=== PATIENT | male | born 1985 | race Caucasian/White ===

== ENCOUNTER 2016-11-04 13:45 | Inpatient (IN) | payer OTHER ==
--- NOTE | 2016-11-04 14:18 | EDPHY ---
H & P Stated Complaint: L hand skin infection HPI/ROS: HPI CHIEF COMPLAINT: left hand/wrist infection HISTORY OF PRESENT ILLNESS: This patient very pleasant 31-year-old male denies any significant medical history, does smoke marijuana, denies other illicit drugs or IV drug use. He presents to the emergency room with 2 days of worsening left wrist pain, swelling, redness. Patient states he was seen and a recent urgent care placed on Bactrim for pustules of his left upper arm, and 1 was drained urgent care. He tells me that he had another lesion on the distal aspect of his left wrist dorsal side that was red and swollen he tried to drain this himself by pushing on it is squeezing pus out on removing the scab and sticking a sharp object to drain it. He tells me that the redness and swelling has now gotten worse he is now entire left hand and left arm is swollen, red, warm. Denies fever. Does tell me that it causes him pain. He is able to have full range of motion of his left wrist. Denies chills or rigors. Past Medical History: No significant medical history Past Surgical History: No significant surgical history Social History: Tells me is visiting from [place] Family History: Noncontributory ROS REVIEW OF SYSTEMS: A comprehensive 10 point review of systems is otherwise negative aside from elements mentioned in the history of present illness. Exam Constitutional triage nursing summary reviewed, vital signs reviewed, awake/ alert. Eyes normal conjunctivae and sclera, EOMI, PERRLA. HENT normal inspection, atraumatic, moist mucus membranes, no epistaxis, neck supple/ no meningismus, no raccoon eyes. Respiratory clear to auscultation bilaterally, normal breath sounds, no respiratory distress, no wheezing. Cardiovascular rate normal, regular rhythm, no murmur, no edema, distal pulses normal. Gastrointestinal soft, non-tender, no rebound, no guarding, normal bowel sounds, no distension, no pulsatile mass. Genitourinary no CVA tenderness. Musculoskeletal no midline vertebral tenderness, full range of motion, no calf swelling, no tenderness of extremities, no meningismus, good pulses, neurovascularly intact. Skin left wrist dorsal aspect distal radius region: significant swelling, redness, warmth this tracks up his forearm half way also involves the dorsum of his hand significantly he is neurovascularly intact. No crepitus. There is a pustule present with weeping drainage. Neurologic awake, alert and oriented x 3, AAOx3, moves all 4 extremities equally, motor intact, sensory intact, CN II-XII intact, normal cerebellar, normal vision, normal speech. Psychiatric normal mood/affect. Heme/Lymph/Immune no lymphadenopathy. Differential Diagnosis: Includes but is not limited to in a particular order MRSA infected, deep space hand infection, bacteremia, sepsis doubt septic joint given full range of motion, cellulitis, strep infection Medical Decision Making: this patient had an IV established obtain blood cultures, lactic acid, he will need an x-ray to rule out gas of his left arm, patient received broad-spectrum antibiotics IV vancomycin IV Zosyn check blood work. IV morphine for pain control. Most likely patient will need to be admitted as he is on Bactrim however his infection is getting worse. Re-evaluation: ED x-ray left wrist three view: soft tissue swelling, no gas, no osseous involvement. Image interpreted by myself 1529: Re-examination this time patient is resting comfortably. Blood cultures have been sent, wound culture sent, patient received broad-spectrum antibiotics including IV vancomycin IV Zosyn given possible outpatient failure Bactrim for this left wrist infection. Given how much swelling and redness and pain this patient has a will admit the patient to the hospital for observation IV pain control and IV antibiotics. No evidence of septic joint at this time specifically is full range of motion of his wrist no limited range of motion. 1536; re-evaluation at this time patient be admitted to the hospitalist service he agrees for admission overnight. No evidence of severe sepsis, or septic joint. Source: Patient - Personal History Current Tetanus/Diphtheria Vaccine: Yes Current Tetanus Diphtheria and Acellular Pertussis (TDAP): Yes - Medical/Surgical History Hx Asthma: No Hx Chronic Respiratory Disease: No Hx Diabetes: No Hx Cardiac Disease: No Hx Renal Disease: No Hx Cirrhosis: No Hx Alcoholism: No Hx HIV/AIDS: No Hx Splenectomy or Spleen Trauma: No - Social History Smoking Status: Never smoked Constitutional: Initial Vital Signs Temperature (C) 36.2 C 11/04/16 13:52 Heart Rate 73 11/04/16 13:52 Respiratory Rate 16 11/04/16 13:52 Blood Pressure 131/90 H 11/04/16 13:52 O2 Sat (%) 98 11/04/16 13:52 O2 Delivery Mode Room Air Allergies/Adverse Reactions: No Known Allergies Allergy (Unverified 11/04/16 13:54) Medical Decision Making - Data Points Laboratory Results: Laboratory Results 11/04/16 14:30 11/04/16 14:30 11/04/16 14:30 WBC 14.97 H 10^3/uL (3.80-9.50) RBC 5.92 10^6/uL (4.40-6.38) Hgb 15.8 g/dL (13.7-17.5) Hct 48.6 % (40.0-51.0) MCV 82.1 fL (81.5-99.8) MCH 26.7 L pg (27.9-34.1) MCHC 32.5 g/dL (32.4-36.7) RDW 12.5 % (11.5-15.2) Plt Count 204 10^3/uL (150-400) MPV 11.0 fL (8.7-11.7) Neut % (Auto) 78.4 H % (39.3-74.2) Lymph % (Auto) 11.9 L % (15.0-45.0) [place] % (Auto) 7.5 % (4.5-13.0) Eos % (Auto) 1.3 % (0.6-7.6) Baso % (Auto) 0.3 % (0.3-1.7) Nucleat RBC Rel Count 0.0 % (0.0-0.2) Absolute Neuts (auto) 11.73 H 10^3/uL (1.70-6.50) Absolute Lymphs (auto) 1.78 10^3/uL (1.00-3.00) Absolute Monos (auto) 1.13 H 10^3/uL (0.30-0.80) Absolute Eos (auto) 0.19 10^3/uL (0.03-0.40) Absolute Basos (auto) 0.05 10^3/uL (0.02-0.10) Absolute Nucleated RBC 0.00 10^3/uL (0-0.01) Immature Gran % 0.6 % (0.0-1.1) Immature Gran # 0.09 10^3/uL (0.00-0.10) ESR 8 MM/HR (0-15) Sodium 142 mEq/L (134-144) Potassium 4.1 mEq/L (3.5-5.2) Chloride 99 mEq/L (97-110) Carbon Dioxide 27 mEq/l (22-31) Anion Gap 16 mEq/L (8-16) BUN 11 mg/dL (7-23) Creatinine 1.1 mg/dL (0.7-1.3) Estimated GFR > 60 Glucose 97 mg/dL (70-100) Calcium 9.8 mg/dL (8.5-10.4) Total Bilirubin 1.4 mg/dL (0.1-1.4) AST 25 IU/L (17-59) ALT 33 IU/L (21-72) Alkaline Phosphatase 80 IU/L (38-126) C-Reactive Protein 16.3 H mg/L (<10.0) Total Protein 8.5 H g/dL (6.3-8.2) Albumin 4.9 g/dL (3.5-5.0) Medications Given: Discontinued Medications Sodium Chloride (Ns) 1,000 mls @ 0 mls/hr IV ONCE ONE PRN Reason: Wide Open Stop: 11/04/16 14:26 Last Admin: 11/04/16 14:55 Dose: 1,000 mls Piperacillin/Tazobactam/Dextrose (Zosyn (Premix)) 100 mls @ 200 mls/hr IV EDNOW ONE PRN Reason: Protocol Stop: 11/04/16 14:54 Last Admin: 11/04/16 14:59 Dose: 100 mls Morphine Sulfate (Morphine) 4 mg IVP EDNOW ONE Stop: 11/04/16 14:31 Last Admin: 11/04/16 14:56 Dose: 4 mg Ondansetron HCl (Zofran) 4 mg IVP EDNOW ONE Stop: 11/04/16 14:31 Last Admin: 11/04/16 14:56 Dose: 4 mg Departure - Departure Disposition: [facility] Acute Clinical Impression: Cellulitis Condition: Fair Referrals: NONE *PRIMARY CARE P,. [Primary Care Provider] - As per Instructions
[2016-11-04] MEDS ORDERED: NS 1,000 ML IV ONE (14:25)
[2016-11-04] MEDS ORDERED: PIPERACILLIN/TAZO 4.5 GM/DEX 100 ML IV ONE (14:25)
[2016-11-04] MEDS ORDERED: VANCOMYCIN HCL/NORMAL SALINE 250 ML IV ONE (14:25)
[2016-11-04] MEDS ORDERED: ONDANSETRON 4 MG/2 ML VIAL IVP ONE (14:30)
[2016-11-04 14:54] LABS: % IMMATURE GRANULYOCYTES 0.6 % (0.0-1.1); ABSOLUTE IMMATURE GRANULOCYTES 0.09 10^3/uL (0.00-0.10); ADD DIFF? NO; ADD MORPH? NO; ADD SCAN? NO; ATYPICAL LYMPHOCYTE FLAG 10 (0-99); FRAGMENT RBC FLAG 0 (0-99); HEMATOCRIT 48.6 % (40.0-51.0); HEMOGLOBIN 15.8 g/dL (13.7-17.5); LEFT SHIFT FLG 0 (0-99); LIPEMIA HEMOLYSIS FLAG 80 (0-99); MEAN CELL HEMOGLOBIN 26.7 pg (27.9-34.1); MEAN CELL HEMOGLOBIN CONCENTR. 32.5 g/dL (32.4-36.7); MEAN CELL VOLUME 82.1 fL (81.5-99.8); PLATELET CLUMPS FLAG 0 (0-99); PLATELET COUNT 204 10^3/uL (150-400); RED BLOOD CELL COUNT 5.92 10^6/uL (4.40-6.38); RED CELL DISTRIBUTION WIDTH 12.5 % (11.5-15.2)
--- NOTE | 2016-11-04 15:05 | DX ---
Left Wrist, Four Views November 04, 2016 1435 hours Indication: Pain, swelling and purulent drainage. Comparison: None. Findings: Bony alignment of the wrist is anatomic. Joint spaces are well maintained. No evidence of f racture or dislocation. No foreign body or soft tissue gas. There is some lateral soft tissue swellin g along the radius. Impression: Soft tissue swelling. No evidence of foreign body or subcutaneous emphysema.
[2016-11-04 15:12] LABS: ALANINE AMINOTRANSFERASE 33 IU/L (21-72); ALBUMIN 4.9 g/dL (3.5-5.0); ALKALINE PHOSPHATASE 80 IU/L (38-126); ANION GAP 16 mEq/L (8-16); ASPARTATE AMINOTRANSFERASE 25 IU/L (17-59); BILIRUBIN,TOTAL 1.4 mg/dL (0.1-1.4); C-REACTIVE PROTEIN 16.3 mg/L (<10.0); CALCIUM 9.8 mg/dL (8.5-10.4); CARBON DIOXIDE 27 mEq/l (22-31); CHLORIDE 99 mEq/L (97-110); CREATININE 1.1 mg/dL (0.7-1.3); GLOMERULAR FILTRATION RATE > 60; GLUCOSE 97 mg/dL (70-100); POTASSIUM 4.1 mEq/L (3.5-5.2); SODIUM 142 mEq/L (134-144); TOTAL PROTEIN 8.5 g/dL (6.3-8.2)
[2016-11-04 15:13] LABS: SEDIMENTATION RATE 8 MM/HR (0-15)
[2016-11-04] MEDS ORDERED: HYDROmorphONE/DILAUDID 1 MG/ML SYR ONE (15:45)
[2016-11-04] MEDS ORDERED: HYDROmorphONE/DILAUDID 2 MG/ML SYR IVP ONE (15:52)
[2016-11-04] MEDS ORDERED: ZOLPIDEM TARTRATE 5 MG TAB PO PRN (15:55)
[2016-11-04] MEDS ORDERED: ONDANSETRON 4 MG/2 ML VIAL IVP PRN (15:55)
[2016-11-04] MEDS ORDERED: ONDANSETRON DISINTEGRATING 4 MG TAB PO PRN (15:55)
[2016-11-04] MEDS ORDERED: HYDROmorphONE/DILAUDID 1 MG/ML SYR IVP PRN (15:55)
[2016-11-04] MEDS ORDERED: ACETAMINOPHEN 325 MG TAB PO PRN (15:55)
--- NOTE | 2016-11-04 16:46 | US ---
Ultrasound Extremity Nonvascular Indication: Left wrist pain and swelling. Technique: Grayscale and color imaging of the left wrist was performed at the site of abnormality. Findings: There is an avascular 1.2 x 0.9 x 0.3 cm hypoechoic area approximately 4.5 mm directly belo w the skin edge. Its borders are irregular. The surrounding tissue is hyperemic. Impression: Findings consistent with early abscess of the left wrist. Results discussed by Dr. Subramanian with Dr. Quach on November 04, 2016 at 1642 hours. He was present at the time of ultrasound and will attempt aspiration.
--- NOTE | 2016-11-04 17:09 | GHP ---
[f rep st] HISTORY AND PHYSICAL DATE OF ADMISSION: 11/04/2016 CHIEF COMPLAINT: Left wrist pain. HISTORY OF PRESENT ILLNESS: Mahamed is a 31-year-old healthy young man who comes in with increasing swelling and pain in his left wrist. He noted some pustules on his left upper arm a few days ago. Jose Carlos jacob went to urgent care on Friday, had 1 of the pustules on roofed, and placed empirically on Bactrim for likely staph infection. He has taken 4 doses, 1 Friday, 2 Friday, and 1 this morning; however , yesterday morning, he had increased swelling and pain in his left wrist and dorsum of his hand. He has not had fevers or chills, nausea or vomiting. He does not feel sick otherwise. Over the course of the day, the swelling became quite significant so he noted a small pimple on his wrist area. He unroofed it, tried to squeeze out some pus, and noted that it got worse, so came in today for further evaluation and treatment. 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 He may have had intermittent needle sticks, he i s not sure. He did have a similar episode of these pustules a few years ago, which was related tempo rarily a tattoo in the same area. He denies any new tattoos on his left arm, but did have a new tatt oo a few weeks ago on his leg. He is traveling from [place], [place] to visit some friends in the area. He denies any IV drug use or skin-popping. He has had no headache, vision, hearing, speech, s wallowing problems. No chest pain, coughing, shortness of breath. No nausea, vomiting, diarrhea. N o other skin lesions except on his upper arm and wrist. No other rash. He does not feel sick. REVIEW OF SYSTEMS: A 10-point review of systems was done and is negative except as stated in HPI. PAST MEDICAL HISTORY: Negative. PAST SURGICAL HISTORY: Negative. CURRENT MEDICATIONS: Occasional Tylenol and ibuprofen. ALLERGIES: No known drug allergies. FAMILY HISTORY: Parents are healthy. SOCIAL HISTORY: He denies any tobacco use. He does smoke marijuana daily and drinks alcohol 1-2 madiha es a week. Again, he denies any IV drug use or skin-popping. PHYSICAL EXAM: VITAL SIGNS: Temp is 37.1, heart rate 72, blood pressure 133/84, respirations 14. H e is 96% on room air. GENERAL: He is a well-developed, well-nourished, 31-year-old. He is in very mild distress. He is alert and oriented. His speech is clear and fluent. HEENT: Head is atraumati c. Pupils equal. Extraocular movements intact. Mucous membranes are moist. NECK: Supple. No kaleb nopathy. Thyroid normal. HEART: Regular rate and rhythm. No murmurs, gallops, or rubs. LUNGS: C lear to auscultation. No wheeze, rhonchi, or rales. ABDOMEN: Soft, no masses. Normoactive bowel s ounds. EXTREMITIES: No clubbing, cyanosis, or edema. NEUROLOGIC: He moves all 4 extremities equal ly. Sensation grossly intact. MUSCULOSKELETAL: He does have increasing swelling and slight decreas ed range of motion of his left wrist. He can make a soft patient safety officer of his hand, which is somewhat limited by the swelling more so than the pain. SKIN: 2 small pustules on his left upper arm and 1 draining pustule on his left wrist. He has multiple tattoos. LABORATORY DATA: CBC shows a white count of 15,000, hemoglobin 15.8, with a platelet count of 204. Electrolytes and renal function are normal. CRP is elevated at 16.3. IMAGING: Plain films are within normal limits except for some soft tissue swelling. ASSESSMENT AND PLAN: 31-year-old, otherwise healthy male presents with cellulitis, possible small ab scess of his left wrist and forearm. 1. Cellulitis with abscess. Currently draining. It was cultured by the ER physician, Dr. Quach. Given the ongoing drainage, will go ahead and get an ultrasound of the area to make sure there is no deeper abscess. If so, would attempt to richelle it. Otherwise, will admit him for IV antibiotics and start him on vancomycin to be dosed by Pharmacy. We will plan on treating his infection until the s welling is markedly improved and he has good, near normal range of motion in his hand and wrist. The culture results will aid in discharging antibiotics. Certainly if this is streptococcus, we could l ikely go with dicloxacillin or Keflex. If there is a staphylococcus infection, would rely on sensiti vities done. If the patient worsens significantly, would consider Infectious Disease consult and fur ther imaging. 2. Ongoing marijuana use. 3. Deep vein thrombosis prophylaxis. Patient is low risk. Will encourage ambulation while he is he re. /[id number]/MODL
[2016-11-04] MEDS: oxyCODONE IR 5 MG TAB PO PRN ×2 (18:28→23:35)
[2016-11-05 05:31] LABS: % IMMATURE GRANULYOCYTES 0.3 % (0.0-1.1); ABSOLUTE IMMATURE GRANULOCYTES 0.04 10^3/uL (0.00-0.10); ADD DIFF? NO; ADD MORPH? NO; ADD SCAN? NO; ATYPICAL LYMPHOCYTE FLAG 20 (0-99); FRAGMENT RBC FLAG 0 (0-99); HEMATOCRIT 43.5 % (40.0-51.0); HEMOGLOBIN 13.7 g/dL (13.7-17.5); LEFT SHIFT FLG 0 (0-99); LIPEMIA HEMOLYSIS FLAG 80 (0-99); MEAN CELL HEMOGLOBIN 26.3 pg (27.9-34.1); MEAN CELL HEMOGLOBIN CONCENTR. 31.5 g/dL (32.4-36.7); MEAN CELL VOLUME 83.7 fL (81.5-99.8); MEAN PLATELET VOLUME 11.3 fL (8.7-11.7); PLATELET CLUMPS FLAG 0 (0-99); PLATELET COUNT 166 10^3/uL (150-400); RED CELL DISTRIBUTION WIDTH 12.6 % (11.5-15.2)
[2016-11-05 05:48] LABS: ANION GAP 10 mEq/L (8-16); CARBON DIOXIDE 25 mEq/l (22-31); CHLORIDE 104 mEq/L (97-110); GLOMERULAR FILTRATION RATE > 60; GLUCOSE 91 mg/dL (70-100); POTASSIUM 4.3 mEq/L (3.5-5.2); SODIUM 139 mEq/L (134-144)
--- NOTE | 2016-11-05 09:48 | HOSPPROG ---
Hospitalist Progress Note Assessment/Plan: Mahamed is a 31 y/o male who presented to the ER with left wrist pain. Today is my first encounter with the patient/chart reviewed. #. 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 Leukocytosis due to the above #. Cannibis use #. Plan: will get surgical and ID team involvement/ explained plan of care to Mahamed. He understands and is appreciative. Subjective: Mahamed c/o some pain at the left wrist area/ is able to flex and extend wrist. Objective: Vital Signs Temp Pulse Resp BP Pulse Ox 37 C 53 L 18 116/67 96 11/05/16 07:51 11/05/16 07:51 11/05/16 07:51 11/05/16 07:51 11/05/16 07:51 Laboratory Results 11/05/16 04:50 11/05/16 04:50 11/04/16 11/05/16 11/06/16 05:59 05:59 05:59 Intake Total 550 Balance 550 - Physical Exam Constitutional: no apparent distress, appears nourished Eyes: PERRL Ears, Nose, Mouth, Throat: hearing normal Cardiovascular: regular rate and rhythym Respiratory: no respiratory distress Gastrointestinal: normoactive bowel sounds Skin: fluctuance (over left wrist area with small pustule, redness and erythema extend from wrist to top part of the hand, fingers with swelling but not reddened), other (multiple tattoos) Musculoskeletal: full muscle strength Neurologic: AAOx3 Psychiatric: interacting appropriately, not anxious ICD10 Worksheet Patient Problems: Problems Problem Status Diagnosed Cellulitis Acute
[2016-11-05] MEDS: oxyCODONE IR 5 MG TAB PO PRN ×4 (11:20→23:12)
[2016-11-05] MEDS ORDERED: VANCOMYCIN 1.25 GM in D5W 250 ML IV SCH ×2 (11:30)
[2016-11-05] MEDS: VANCOMYCIN 1.25 GM in D5W 250 ML IV SCH ×2 (12:14→19:39)
--- NOTE | 2016-11-05 13:02 | GCON ---
[f rep st] CONSULTATION DATE OF CONSULTATION: 11/05/2016 REFERRING PHYSICIAN: Conchita Parish NP CHIEF COMPLAINT: Left wrist abscess. HISTORY OF PRESENT ILLNESS: The patient is a 31-year-old man who presented to the ER on 11/04/2016, complaining of left wrist pain and redness. He was seen at Urgent Care several days prior for small abscesses of his left upper arm. These were unroofed and he was placed on oral Bactrim. The day bef ore admission, he developed swelling and pain of his left wrist and hand. He denies fevers or chills . He has completed 4 doses of Bactrim and was started on IV antibiotics when admitted, he was starte d on IV vancomycin. A wrist x-ray was obtained in the ER which showed soft tissue swelling. An ultr asound showed evidence of early abscess. He had an incision and drainage performed in the ER and cul tures were obtained, these are pending. He states that the redness and swelling have remained stable since being admitted. He denies any worsening symptoms. He denies any IV drug use. He works in a [employer] and may have been stuck by a needle but he is unsure. He does not have a history of ch ronic infections. PAST MEDICAL HISTORY: None. PAST SURGICAL HISTORY: None. ALLERGIES: No known drug allergies. FAMILY HISTORY: Noncontributory. SOCIAL HISTORY: He denies tobacco or IV drug use. He uses recreational marijuana daily. Drinks alc ohol several times per week. REVIEW OF SYSTEMS: 10-point review of systems negative aside from HPI. PHYSICAL EXAM: GENERAL: Well developed, well nourished man, in no acute distress. HEENT: Normocep halic, atraumatic. No hearing deficits. Pupils equal and round. No scleral icterus. Mucous [place] moist. NECK: Trachea midline. HEART: Regular rate and rhythm. LUNGS: Clear to auscultation bilaterally. MUSCULOSKELETAL: He has full range of motion of left fingers and wrist, slightly decre ased secondary to pain. SKIN: The left dorsal wrist and hand is edematous and very warm to the touc h. There is induration of the wrist, which is very tender to palpation. There is no fluctuance and does not appear to be a distinct abscess cavity. He has 2 scabs on his left upper outer arm consiste nt with healing abscesses. IMPRESSION AND PLAN: This is a 31-year-old man with cellulitis of the left wrist and hand, question early abscess. We will order a CT of the extremity to further define the area, evaluate for abscess versus inflammation. We discussed that he may require further debridement at bedside or in the opera ting room. He may have a wound that will take time to heal. He will continue IV antibiotics per Inf ectious Disease. He will be additionally seen by Dr. Keren Andre, who agrees with the above impressi on and plan. /[id number]/MODL
--- NOTE | 2016-11-05 13:37 | GCON ---
[f rep st] CONSULTATION INFECTIOUS DISEASE CONSULTATION DATE OF CONSULTATION: 11/05/2016 REFERRING PHYSICIAN: Conchita Parish NP REASON FOR CONSULTATION: Left upper extremity cellulitis with early abscess formation. CHIEF COMPLAINT: Left forearm redness with swelling. HISTORY OF PRESENTING ILLNESS: This is a 31-year-old male with previous history of right lower extre mity cellulitis a few years ago after he had tattooing done there. He recently traveled here from [facility], and arrived here in [place] on October 29. Around that time, he started to notice a few pus tules that had developed on his left arm and forearm. He went to the urgent care on [facility], where the upper pustule from his left upper arm was I and D. Apparently, n o cultures were taken at the time and he was placed empirically on Bactrim. He had taken about 2 days ' worth and came in yesterday with increasing redness and swelling of his left hand, forearm and wris t region. He denied any fevers or shaking chills at the time. He was started on vancomycin yesterday. Blood cultures x2 sets have been drawn and they are pending. In the ED, he underwent an extremity ul trasound, which showed a small hypoechoic area about 1.2 x 0.9 x 0.3 cm near the wrist. He also under went a left wrist x-ray, which showed soft tissue swelling with no foreign body and no air noted. His white blood cell count was 14.9, with a mildly elevated CRP at 16.3. He has continued to have increa sing redness and swelling involving the hand, wrist and forearm. The swelling of the hand overall may be just a little bit better, but not significantly improved. He denies receiving any recent tattooin g work involving his left arm. He denies injection drug usage as well. Infectious Disease is now cons ulted for further evaluation and opinion on the above. REVIEW OF SYSTEMS: GENERAL: Denies any fever or shaking chills. HEAD: No headaches. EYES: No change in vision. ENT: No sore throat, difficulty swallowing, ear pain or ear drainage. CARDIOVASCULAR: Jon es any chest pain or rapid heartbeat. RESPIRATORY: Denies any shortness of breath, cough, or sputum p roduction. ABDOMEN: No nausea, vomiting, abdominal pain, or diarrhea. : No dysuria. BACK: Denies an y flank pain or back pain. MUSCULOSKELETAL: Denies any joint pains or muscle aches. SKIN: No other ra shes or open wounds. Rest of 10-point review of systems essentially negative, except for above. PAST MEDICAL HISTORY: Significant for right lower extremity cellulitis after a tattoo being done the re. PAST SURGICAL HISTORY: Significant for wisdom teeth surgery. ALLERGIES: No known drug allergies. SOCIAL HISTORY: He smokes marijuana and drinks alcohol 1-2 times a week. He occasionally snorts coca ine, most recent time was Andie. He denies any intravenous drug usage. He lives in an apart ent with a friend. He is originally from [place], and traveled here to [place] on October 29, a nd is due to leave back some time soon. He actually drove here. He has never been checked for HIV, or hepatitis B or C. FAMILY HISTORY: Parents are healthy. PHYSICAL EXAMINATION: VITAL SIGNS: Temperature current 37, T-max 37.1, pulse is 53, respiratory rate is 18, blood pressure 116/67, saturation 96% on room air. GENERAL: Patient is resting comfortably in bed. No acute respiratory distress. Awake, alert, and oriented x3. HEENT: Head is normocephalic, atr aumatic. Eyes: No conjunctival injection. No petechiae noted. Oropharynx is clear. CARDIOVASCULAR: S1 and S2. Regular rate and rhythm. No murmurs appreciated. RESPIRATORY: Clear to auscultate bilaterall y. No rhonchi or rales appreciated. ABDOMEN: Positive bowel sounds in all 4 quadrants. Soft, nontende r, nondistended. No obvious organomegaly appreciated. EXTREMITIES: No lower extremity edema. MUSCULOS KELETAL: No obvious joint effusions or pain on palpation of the joints. SKIN: Pertinent findings show left forearm, wrist and hand with erythema. There is a focal area of induration just above his left wrist that is tender to palpate. There is minimal serous drainage on palpation, but no obvious fluctu ance. It is mostly very indurated. His hand is swollen. Sensation is intact on the fingertips and per ipheral pulses are well appreciated. Upon his left arm, there is a healing pustule with some mild ind uration surrounding. No drainage and some mild scabbing noted. LABS: 1. Sodium 139, potassium 4.3, chloride 104, bicarb 25, BUN is 8, creatinine is 1.0. C-reactive prote in 16.3. White blood cell count of 14.1, hemoglobin 13.7, platelets are 166, neutrophil count is 69.6 , down from 78.4. ESR is 8. 2. Blood cultures x2 sets are pending. 3. Wrist wound cultures with rare epis, no polys, no organisms. Cultures are pending. 4. Imaging results have all been reviewed by me and are stated above. ASSESSMENT: Left upper extremity cellulitis with early abscess formation involving the distal forear m and hand. PLAN: The patient is currently on vancomycin 0.25 g q.12 hours. We will order a trough for further e valuation. We will add clindamycin for synergistic activity. Follow up periodically. I agree with missy gical consultation to further evaluate for possible I and D. He has quite a bit of induration there a nd thus, it may take some time to more formally organize into a pus pocket. Care coordinated with the surgical PA. I have discussed checking HIV and hepatitis serologies with the patient, and he agrees to the testing. If an I and D is done, would recommend a repeat culture to be done for further evalua tion. Recommended elevation of the extremities and discussed this importance with the patient. Trev duffy oordinated with the hospitalist team. I thank you very much for providing this opportunity to care fo r your patient in consultation. /[id number]/MODL
[2016-11-05] MEDS ORDERED: IOPAMIDOL (ISOVUE 370) 100 ML BTL IV ONE (14:00)
[2016-11-05] MEDS: CLINDAMYCIN 600 MG/DEXTROSE 50 ML IV SCH ×2 (14:31→22:26)
--- NOTE | 2016-11-05 16:33 | CT ---
CT left wrist 1417 hours. History: Left wrist abscess and cellulitis. Treated with antibiotics. Previous abscess left upper arm . Technique: Spiral imaging was obtained through the left wrist. Images were reconstructed down to 1.25 mm slice thickness and reviewed in multiple planes. Findings: Comparison to prior ultrasound study from November 04, 2016. There is a complex hypodense irregular collection along the dorsal aspect of the proximal wrist in th e subcutaneous tissues that appears to extend to the skin surface suspicious for a small abscess. Thi s measures about 17 x 8 x 18 mm in transverse, AP, and longitudinal dimensions. No additional possibl e abscess collections are seen. There is moderate cellulitis along the dorsum of the hand and wrist. The underlying tendons and musculature appear to be normal. There are no erosions of the osseous stru ctures. Joint spaces are normal. There is normal enhancement of the vasculature. Impression: 1. Complex collection suspected along the dorsal aspect of the left wrist probably representing absce ss versus phlegmon. If indicated, ultrasound-guided aspiration can be attempted as clinically directe d. 2. Moderate cellulitis along the dorsum of the left wrist and hand. A secured text message was sent to Dr. Conchita Parish at 1627 hours.
[2016-11-06] MEDS: VANCOMYCIN 1.25 GM in D5W 250 ML IV SCH ×3 (03:40→15:39)
[2016-11-06 05:53] LABS: % IMMATURE GRANULYOCYTES 0.4 % (0.0-1.1); ABSOLUTE IMMATURE GRANULOCYTES 0.05 10^3/uL (0.00-0.10); ADD DIFF? NO; ADD MORPH? NO; ADD SCAN? NO; ATYPICAL LYMPHOCYTE FLAG 20 (0-99); FRAGMENT RBC FLAG 0 (0-99); HEMATOCRIT 43.6 % (40.0-51.0); HEMOGLOBIN 14.1 g/dL (13.7-17.5); LEFT SHIFT FLG 0 (0-99); LIPEMIA HEMOLYSIS FLAG 80 (0-99); MEAN CELL HEMOGLOBIN 26.8 pg (27.9-34.1); MEAN CELL HEMOGLOBIN CONCENTR. 32.3 g/dL (32.4-36.7); MEAN CELL VOLUME 82.7 fL (81.5-99.8); MEAN PLATELET VOLUME 10.9 fL (8.7-11.7); PLATELET CLUMPS FLAG 0 (0-99); PLATELET COUNT 179 10^3/uL (150-400); RED BLOOD CELL COUNT 5.27 10^6/uL (4.40-6.38); RED CELL DISTRIBUTION WIDTH 12.3 % (11.5-15.2)
[2016-11-06 06:06] LABS: ANION GAP 15 mEq/L (8-16); CALCIUM 9.1 mg/dL (8.5-10.4); CARBON DIOXIDE 23 mEq/l (22-31); CHLORIDE 101 mEq/L (97-110); GLOMERULAR FILTRATION RATE > 60; GLUCOSE 106 mg/dL (70-100); POTASSIUM 4.1 mEq/L (3.5-5.2); SODIUM 139 mEq/L (134-144)
[2016-11-06] MEDS: CLINDAMYCIN 600 MG/DEXTROSE 50 ML IV SCH ×3 (06:07→21:42)
[2016-11-06] MEDS: oxyCODONE IR 5 MG TAB PO PRN ×4 (06:07→21:42)
[2016-11-06] MEDS ORDERED: LIDOCAINE 1% *Not for Epidural 20 ML MDV NB ONE (08:47)
--- NOTE | 2016-11-06 09:55 | HOSPPROG ---
Hospitalist Progress Note Assessment/Plan: Mahamed is a 31 y/o male who presented to the ER with left wrist pain. #. Left wrist infection/MRSA has a small pustule that may need draining/has a warm firm area Dr Andre to I & D later today on Vancomycin on precautions #. Leukocytosis due to the above some improvement #. Cannibis use #. Plan: Dr Andre to I & D later today Subjective: Mahamed has no c/o pain. Objective: Vital Signs Temp Pulse Resp BP Pulse Ox 36.7 C 53 L 18 110/68 95 11/06/16 08:00 11/06/16 08:00 11/06/16 08:00 11/06/16 08:00 11/06/16 08:00 Laboratory Results 11/06/16 05:46 11/06/16 05:46 11/05/16 11/06/16 11/07/16 05:59 05:59 05:59 Intake Total 900 Balance 900 - Physical Exam Constitutional: no apparent distress, appears nourished, not in pain Eyes: PERRL Ears, Nose, Mouth, Throat: hearing normal Respiratory: no respiratory distress Skin: warm, other (left wrist with more of pustule forming today/ erythema improving and swelling is less today in the fingers) Musculoskeletal: full muscle strength Neurologic: AAOx3 Psychiatric: interacting appropriately, not anxious ICD10 Worksheet Patient Problems: Problems Problem Status Diagnosed Cellulitis Acute
[2016-11-06 13:04] LABS: HEPATITIS Bs Ab QUANT <5.0 mIU/mL (())
--- NOTE | 2016-11-06 13:10 | GPN ---
[f rep st] PROCEDURE NOTE DATE OF PROCEDURE: 11/06/2016 PREPROCEDURE DIAGNOSIS: Left dorsal wrist cellulitis with abscess. POSTPROCEDURE DIAGNOSIS: Left dorsal wrist cellulitis with abscess. REASON/INDICATIONS FOR PROCEDURE: The patient is a 31-year-old man who developed left wrist pain and swelling. He had an I and D performed in the ER. A CT scan showed a complex abscess without joint involvement. DESCRIPTION OF PROCEDURE: Verbal consent was obtained. Time-out was performed. The left wrist was prepped in the usual sterile fashion. The area was infiltrated with 5 cc of 1% lidocaine. A cruciate incision was made over top of the area of induration. Thick purulence was expressed from the abscess cavity. The cavity was irrigated with normal saline with clear return of fluid. The abscess cavity was then packed with 1/4-inch plain gauze packing, followed by secondary dressing. He tolerated the procedure well. FOLLOWUP: We will change the packing tomorrow, 11/07/2016. Secondary dressing may be changed as needed. Continue IV antibiotics per ID. /[id number]/MODL MTDD
[2016-11-06] MEDS ORDERED: MAGNESIUM HYDROXIDE 30 ML UDCUP PO PRN (17:50)
[2016-11-06] MEDS ORDERED: LACTULOSE 20 GM/30 ML UDCUP PO PRN (17:50)
[2016-11-06] MEDS ORDERED: BISACODYL 10 MG SUPP PR PRN (17:50)
[2016-11-06] MEDS ORDERED: POLYETHYLENE GLYCOL 3350 17 GM PKT PO PRN (17:50)
--- NOTE | 2016-11-06 18:19 | PCMIDPN ---
Assessment/Plan: Assessment: Left wrist abscess secondary to MRSA. Status post incision and drainage earlier today. Wound is packed. Surrounding tissue looks to be in good shape. Covered with vancomycin intravenously. Would continue this for another 24 hours and then consider transition over to oral Bactrim for discharge. Plan: 1. Continue intravenous vancomycin. 2. Follow-up appearance of left upper extremity. 3. Potential for transition over to oral Bactrim for total of 10-14 days. 11/06/16 18:14 Subjective: Patient is resting comfortably in his hospital bed. He is status post I and D of the left dorsal wrist area. He states the tenderness is greatly reduced. No fevers or chills. Objective: Vancomycin # 2 Vital Signs Temp Pulse Resp BP Pulse Ox 37.1 C 77 18 117/81 H 96 11/06/16 16:00 11/06/16 16:00 11/06/16 16:00 11/06/16 16:00 11/06/16 16:00 Laboratory Results 11/06/16 05:46 11/06/16 05:46 11/05/16 11/06/16 11/07/16 05:59 05:59 05:59 Intake Total 900 300 Balance 900 300 ESR 8 MM/HR (0-15) 11/04/16 14:30 C-Reactive Protein 16.3 mg/L (<10.0) H 11/04/16 14:30 - Physical Exam General Appearance: WD/WN, alert, no apparent distress, non-toxic Extremities: No non-tender, No normal inspection (Dorsum of left wrist with incision and drainage and packed abscess cavity. Surrounding tissue with some erythema and edema. Minimally tender.) ICD10 Worksheet Patient Problems: Problems Problem Status Diagnosed Cellulitis Acute MRSA (methicillin resistant Staphylococcus aureus) Acute 11/04/16
[2016-11-06] MEDS: SENNOSIDES/DOCUSATE SODIUM TAB PO SCH (19:18)
[2016-11-07] MEDS: VANCOMYCIN 1.25 GM in D5W 250 ML IV SCH ×2 (03:26→13:25)
[2016-11-07] MEDS: CLINDAMYCIN 600 MG/DEXTROSE 50 ML IV SCH ×2 (05:22→13:26)
[2016-11-07] MEDS: oxyCODONE IR 5 MG TAB PO PRN (05:23)
[2016-11-07 08:24] VITALS: BP 102/61; PULSE 65; RESP 16; TEMP 98.7; O2SAT 98
[2016-11-07] MEDS: SENNOSIDES/DOCUSATE SODIUM TAB PO SCH (09:06)
--- NOTE | 2016-11-07 09:45 | SOAPPROG ---
SOAP Progress Note Assessment/Plan: Assessment: 31 yo with abscess on left wrist s/p Incision and drainage Much improved today Can D/C to [facility] and follow up with me tomorrow for dressing change. Will need follow up in [place]: Feeling Better O: Swelling much improved. Less purulence. Some skin sloughing Plan: 11/07/16 09:44 Objective: Vital Signs Temp Pulse Resp BP Pulse Ox 37.1 C 65 16 102/61 98 11/07/16 08:00 11/07/16 08:00 11/07/16 08:00 11/07/16 08:00 11/07/16 08:00 Laboratory Results 11/06/16 05:46 11/06/16 05:46 11/06/16 11/07/16 11/08/16 05:59 05:59 05:59 Intake Total 900 300 Balance 900 300 ICD10 Worksheet Patient Problems: Problems Problem Status Diagnosed Cellulitis Acute MRSA (methicillin resistant Staphylococcus aureus) Acute 11/04/16
--- NOTE | 2016-11-07 11:47 | HOSPPROG ---
Hospitalist Progress Note Assessment/Plan: Mahamed is a 31 y/o male who presented to the ER with left wrist pain. #. Left wrist infection/MRSA Status post I and D by Dr. Andre patient has a follow-up appointment with her tomorrow will discuss with Infectious Disease if they are agreement for discharge/ will discharge on Bactrim on Vancomycin on precautions #. Leukocytosis due to the above some improvement #. Cannibis use #. Plan: possible discharge later this afternoon. Patient has a place to stay in [place]. Will follow up with Dr. Andre. Subjective: patient is feeling markedly better today. Objective: Vital Signs Temp Pulse Resp BP Pulse Ox 37.1 C 65 16 102/61 98 11/07/16 08:00 11/07/16 08:00 11/07/16 08:00 11/07/16 08:00 11/07/16 08:00 Laboratory Results 11/06/16 05:46 11/06/16 05:46 11/06/16 11/07/16 11/08/16 05:59 05:59 05:59 Intake Total 900 300 Balance 900 300 - Physical Exam Constitutional: no apparent distress, appears nourished, not in pain Eyes: PERRL Ears, Nose, Mouth, Throat: hearing normal Respiratory: no respiratory distress Skin: other ( redness has resolved on the hand and finger area. Swelling is much improved. On the top of the wrist it continues to be redness.) Musculoskeletal: no muscle tenderness Neurologic: AAOx3 Psychiatric: interacting appropriately ICD10 Worksheet Patient Problems: Problems Problem Status Diagnosed Cellulitis Acute MRSA (methicillin resistant Staphylococcus aureus) Acute 11/04/16
[2016-11-07] MEDS ORDERED: IBUPROFEN 200 MG TAB PO PRN (12:39)
--- NOTE | 2016-11-07 15:28 | PCMIDPN ---
Assessment/Plan: Assessment/Plan: * Left wrist abscess status post incision and drainage due to MRSA: Clinically improved post incision and drainage and with IV vancomycin. Think can transition to oral therapy today. Will give 1 additional dose of vancomycin today, then begin doxycycline 100 mg p.o. twice daily to complete additional 7 days of therapy. He will have wound repacked by Dr. Andre in a.m.. He notes that his mother is an infectious disease nurse in [facility] and that she likely can continue to pack is wound until closure achieved. I have provided my contact information in event his physicians in [place] have any questions regarding his clinical course. 11/07/16 15:25 Subjective: Patient feels significantly improved. Continues to have pain at site of incision and drainage. Objective: Vital Signs Temp Pulse Resp BP Pulse Ox 37.1 C 65 16 102/61 98 11/07/16 08:00 11/07/16 08:00 11/07/16 08:00 11/07/16 08:00 11/07/16 08:00 Laboratory Results 11/06/16 05:46 11/06/16 05:46 11/06/16 11/07/16 11/08/16 05:59 05:59 05:59 Intake Total 900 300 Balance 900 300 ESR 8 MM/HR (0-15) 11/04/16 14:30 C-Reactive Protein 16.3 mg/L (<10.0) H 11/04/16 14:30 Vancomycin # 4 Abscess culture with growth of MRSA susceptible to trimethoprim sulfamethoxazole and tetracycline Blood cultures x2 no growth - Physical Exam General Appearance: alert, no apparent distress EENT: pharynx normal, No conjunctival petechiae Extremities: inflammation (Left wrist with residual erythema adjacent to incision and drainage site which is packed with Nu Gauze; no expressible purulence present; tender in area of erythema; no pain with range of motion of digits or wrist) Abdomen: non-tender, No distended ICD10 Worksheet Patient Problems: Problems Problem Status Diagnosed Cellulitis Acute MRSA (methicillin resistant Staphylococcus aureus) Acute 11/04/16
--- NOTE | 2016-11-07 16:24 | GDS ---
[f rep st] DISCHARGE SUMMARY DISCHARGE DIAGNOSES: 1. Left wrist abscess, status post incision and drainage due to methicillin- resistant Staphylococcus aureus infection. 2. Leukocytosis. 3. Cannibis use. CONSULTATIONS DURING HIS STAY: 1. Dr. Andre with surgical services. 2. Dr. Rolando Lopez with Infectious Disease. BRIEF HISTORY: Mahamed Farmer is a 31-year-old healthy young man, who presented to the emergency room with increased swelling and pain to his left wrist. He noted he had some pustules on his left upper arm a few days ago. He went to urgent care and had 1 of the pustules roofed, and placed empirically on Bactrim for likely staph infection. He had taken 4 doses, but noted that the swelling became worse on his left wrist and dorsum of his hand area. He did not have any fevers or chills. 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 He was evaluated by the surgical team and the infectious disease team, and on November 06 he had an I and D to the left wrist area. He was treated with vancomycin and clindamycin. He will be discharged home on doxycycline. His mom is an infectious disease nurse and she will monitor his healing with this. HOSPITAL COURSE BY PROBLEM: 1. Left wrist infection/MRSA. He is status post I and D by Dr. Andre. He has an appointment tomorrow morning for followup. 2. Leukocytosis, improved. He has been afebrile. 3. Cannabis use, ongoing. PENDING LABS AND TESTS: None. CONDITION AT DISCHARGE: Stable. Blood pressure is 102/61, heart rate is 65, respiratory rate is 16, O2 sats on room air 98%, temperature is 37.1. DISCHARGE INSTRUCTIONS: 1. Further followup with Dr. Andre. 2. Take doxycycline as prescribed. 3. If he develops fever, chills, chest pain, shortness of breath, or worsening redness or erythema to his left wrist, return to the emergency room. Greater than 30 minutes discharging and coordinating care. /[id number]/MODL MTDD
== END 2016-11-07 17:26 | disposition home or self-care (01) | DRG 581 ==
LOC: INTOOBSV 15:35 → F3E 17:24 → OBSVTOIN 11-05 16:00
PROVIDERS: ADMIT Internal Medicine; ATTEND Student in an Organized Health Care Education/Training Program
PROC: 0J9H0ZZ Drainage of Left Lower Arm Subcutaneous Tissue and Fascia, Open Approach (ICD-10-PCS; 2016-11-05)
PROC: 0J9H0ZZ Drainage of Left Lower Arm Subcutaneous Tissue and Fascia, Open Approach (ICD-10-PCS; principal; 2016-11-06)
DX: L03.113 Cellulitis of right upper limb (principal); L02.413 Cutaneous abscess of right upper limb; B95.62 Methicillin resistant Staphylococcus aureus infection as the cause of diseases classified elsewhere; F12.99 Cannabis use, unspecified with unspecified cannabis-induced disorder
CPT/HCPCS: 86704-90; 96365; G0378; G0472; J1170; J2405; J2543; J3370; Q9967